=== PATIENT | female | born 1950 | race Caucasian/White ===

== ENCOUNTER 2017-04-02 08:37 | Emergency (ER) | payer OTHER ==
[~2017-04-02] VITALS: Ht 170.2 cm; Wt 56.8 kg
[2017-04-02] MEDS ORDERED: ADVI200C5 PO (08:50)
--- NOTE | 2017-04-02 09:54 | REP ---
Right ribs and PA chest: Right ribs four views: There are no comparisons. There is no rib fracture or other rib abnormality. PA chest: There is no comparison. There is no pneumothorax, hemothorax or pulmonary contusion. Lung wells are clear. Cardiac size is normal. The torie, mediastinum, bony thorax are unremarkable. Impression: Negative PA chest. Signed by Tigre Keller MD 04/02/2017 09:45 A
[2017-04-02 10:15] VITALS: BP 139/66
== END 2017-04-02 10:16 | disposition home or self-care (01) ==
LOC: M ED 08:37
DX: S23.41XA Sprain of ribs, initial encounter (principal); W50.0XXA Accidental hit or strike by another person, initial encounter; Y92.099 Unspecified place in other non-institutional residence as the place of occurrence of the external cause; Y93.89 Activity, other specified; Y99.9 Unspecified external cause status